=== PATIENT | male | born 1980 | race Two or more races ===

== ENCOUNTER 2023-06-23 16:44 | Inpatient (IN) | payer MEDICAID, OTHER ==
[~2023-06-23] VITALS: Ht 160 cm; Wt 66.2 kg
[2023-06-23] MEDS ORDERED: hydrALAZINE HCL 20 MG/ML VL IV ONE (17:45)
[2023-06-23 17:50] LABS: Basophils # (auto) 0.1 10 ^3/uL (0-0.2); Basophils % (auto) 1.2 % (0.0-2.0); Eosinophils # (auto) 0.3 10 ^3/uL (0-0.8); Eosinophils % (auto) 3.7 % (0.0-7.0); Hematocrit 46.6 % (41.0-53.0); Hemoglobin 15.7 g/dL (13.5-17.5); Lymphocytes # (auto) 2.1 10 ^3/uL (0.4-5.4); Lymphocytes % (auto) 22.3 % (10.0-50.0); Mean Corpuscular Hemoglobin 29.3 pg (28.0-32.0); Mean Corpuscular Hgb Conc. 33.7 g/dL (32.0-36.0); Mean Corpuscular Volume 86.7 fL (80.0-100.0); Monocytes # (auto) 0.6 10 ^3/uL (0-1.3); Monocytes % (auto) 6.9 % (0.0-12.0); Neutrophils # (auto) 6.1 10 ^3/uL (1.6-8.6); Neutrophils % (auto) 65.9 % (37.0-80.0); Nucleated Red Blood Cells % 0.2 %; Red Blood Cells 5.38 10^6/uL (4.5-5.90); Red Cell Distribution Width 13.4 % (11.8-14.3); White Blood Cell 9.2 10^3/uL (4.4-10.8)
[2023-06-23 18:03] LABS: Alanine Aminotransferase 88 U/L (7-40); Albumin 4.6 g/dL (3.2-4.8); Alkaline Phosphatase 117 U/L (46-116); Anion Gap 7 (5-15); Aspartate Aminotransferase 41 U/L (13-40); BUN/Creatinine Ratio 18.8 (10.0-20.0); Blood Urea Nitrogen 21 mg/dL (9-23); Calcium 9.5 mg/dL (8.7-10.4); Carbon Dioxide 27 mmol/L (20-30); Chloride 105 mmol/L (98-107); Glucose 161 mg/dL (74-106); Lipase 39 U/L (12-53); Potassium 3.8 mmol/L (3.5-5.1); Sodium 139 mmol/L (136-145)
[2023-06-23 18:04] LABS: Bilirubin, Total 1.7 mg/dL (0.2-1.0); Total Protein 6.9 g/dL (5.7-8.2)
[2023-06-23] MEDS ORDERED: KETOROLAC TROMETH 60MG/2ML VIAL IM ONE (20:15)
[2023-06-23 20:25] LABS: Urine Bacteria FEW /hpf (None Seen); Urine Blood Negative /uL (Negative); Urine Clarity Clear (Clear); Urine Color Colorless (Yellow); Urine Protein, UAD 2+ (Negative); Urine Specific Gravity 1.014 (1.001-1.035); Urine Urobilinogen Normal (Negative); Urine WBC <1 /hpf (0 - 3); Urine pH 7.5 (5.0-8.0)
[2023-06-23] MEDS ORDERED: ONDANSETRON HCL 4 MG/2 ML VIAL IV ONE (21:15)
[2023-06-23] MEDS ORDERED: cloNIDine HCL 0.1 MG TAB PO ONE (21:45)
[2023-06-24 00:03] VITALS: PULSE 79; RESP 18; O2SAT 90
[2023-06-24] MEDS ORDERED: DOCUSATE SOD 100 MG CAP PO PRN (01:00)
[2023-06-24] MEDS ORDERED: TEMAZEPAM 15 MG CAP PO PRN (01:00)
[2023-06-24] MEDS ORDERED: NITROGLYCERIN 0.4 MG SL TAB SL PRN (01:00)
[2023-06-24] MEDS ORDERED: IBUPROFEN 600 MG TAB PO PRN (01:00)
[2023-06-24] MEDS ORDERED: HYDROcodone-ACET 5/325MG TAB PO PRN (01:00)
[2023-06-24] MEDS ORDERED: ONDANSETRON HCL 4 MG/2 ML VIAL IV PRN (01:00)
[2023-06-24] MEDS ORDERED: MORPHINE SULFATE INJ 2 MG/ml SYRG IV PRN ×2 (01:00)
[2023-06-24 03:29] LABS: Basophils # (auto) 0.1 10 ^3/uL (0-0.2); Basophils % (auto) 0.6 % (0.0-2.0); Eosinophils # (auto) 0.1 10 ^3/uL (0-0.8); Eosinophils % (auto) 0.5 % (0.0-7.0); Hematocrit 45.8 % (41.0-53.0); Hemoglobin 15.6 g/dL (13.5-17.5); Lymphocytes # (auto) 1.3 10 ^3/uL (0.4-5.4); Mean Corpuscular Hemoglobin 29.4 pg (28.0-32.0); Mean Corpuscular Volume 86.5 fL (80.0-100.0); Monocytes # (auto) 0.6 10 ^3/uL (0-1.3); Monocytes % (auto) 5.6 % (0.0-12.0); Neutrophils # (auto) 8.6 10 ^3/uL (1.6-8.6); Neutrophils % (auto) 81.3 % (37.0-80.0); Nucleated Red Blood Cells % 0.1 %; Red Cell Distribution Width 13.9 % (11.8-14.3); White Blood Cell 10.6 10^3/uL (4.4-10.8)
[2023-06-24 03:53] LABS: Alanine Aminotransferase 78 U/L (7-40); Albumin 4.5 g/dL (3.2-4.8); Alkaline Phosphatase 108 U/L (46-116); Anion Gap 10 (5-15); Aspartate Aminotransferase 28 U/L (13-40); BUN/Creatinine Ratio 12.5 (10.0-20.0); Bilirubin, Total 1.9 mg/dL (0.2-1.0); Blood Urea Nitrogen 18 mg/dL (9-23); Calcium 9.2 mg/dL (8.7-10.4); Carbon Dioxide 24 mmol/L (20-30); Chloride 103 mmol/L (98-107); Glucose 205 mg/dL (74-106); Potassium 3.4 mmol/L (3.5-5.1); Sodium 137 mmol/L (136-145); Total Protein 7.2 g/dL (5.7-8.2)
[2023-06-24 08:53] VITALS: PULSE 82; RESP 14; O2SAT 95
[2023-06-24] MEDS: amLODIPine BESYLATE 5 MG TAB PO SCH (10:11)
[2023-06-24] MEDS ORDERED: LISINOPRIL 10 MG TAB PO ONE (11:00)
[2023-06-24] MEDS ORDERED: POTASSIUM CHL 20 Meq TABLET PO ONE (11:00)
[2023-06-24] MEDS ORDERED: DEXTROSE (50%) 50ML SYRG IV PRN (11:00)
[2023-06-24] MEDS: ACCU-CHEK COMFORT CURVE STRIP VI SCH ×3 (11:39→21:54)
[2023-06-24] MEDS: InsuLIN REG 1unit/0.01ml Soln (100units/ml) SC SCH ×3 (11:42→21:53)
[2023-06-24 12:42] LABS: Magnesium 1.8 mg/dL (1.6-2.6)
[2023-06-24 16:09] VITALS: BP 151/97; PULSE 82; RESP 18; TEMP 97.8; O2SAT 97
[2023-06-24 17:07] VITALS: BP 134/97; PULSE 77
[2023-06-24 20:00] VITALS: BP 142/92; PULSE 80; PULSE 92; RESP 18; TEMP 98.3; O2SAT 96
[2023-06-24] MEDS: ATORVASTATIN 20 MG TAB PO SCH (21:49)
[2023-06-24 22:00] VITALS: BP 142/92; PULSE 80; RESP 18; TEMP 98.3; O2SAT 96
[2023-06-25] VITALS (8 sets, daily range): BP systolic 145–164; BP diastolic 89–113; PULSE 72–87; RESP 18; TEMP 97.8–98.7; O2SAT 95–97
[2023-06-25 05:46] LABS: Basophils # (auto) 0.1 10 ^3/uL (0-0.2); Basophils % (auto) 0.7 % (0.0-2.0); Eosinophils # (auto) 0.3 10 ^3/uL (0-0.8); Eosinophils % (auto) 3.8 % (0.0-7.0); Hematocrit 45.5 % (41.0-53.0); Hemoglobin 15.4 g/dL (13.5-17.5); Lymphocytes # (auto) 2.5 10 ^3/uL (0.4-5.4); Lymphocytes % (auto) 29.2 % (10.0-50.0); Mean Corpuscular Hemoglobin 29.7 pg (28.0-32.0); Mean Corpuscular Hgb Conc. 33.9 g/dL (32.0-36.0); Mean Corpuscular Volume 87.5 fL (80.0-100.0); Monocytes # (auto) 0.7 10 ^3/uL (0-1.3); Monocytes % (auto) 8.1 % (0.0-12.0); Neutrophils % (auto) 58.2 % (37.0-80.0); Nucleated Red Blood Cells % 0.1 %; Red Cell Distribution Width 13.5 % (11.8-14.3); White Blood Cell 8.7 10^3/uL (4.4-10.8)
[2023-06-25] MEDS: ACCU-CHEK COMFORT CURVE STRIP VI SCH ×4 (06:00→22:10)
[2023-06-25 06:04] LABS: Alanine Aminotransferase 84 U/L (7-40); Albumin 4.4 g/dL (3.2-4.8); Alkaline Phosphatase 103 U/L (46-116); Anion Gap 7 (5-15); Aspartate Aminotransferase 36 U/L (13-40); BUN/Creatinine Ratio 17.6 (10.0-20.0); Blood Urea Nitrogen 25 mg/dL (9-23); Calcium 9.4 mg/dL (8.7-10.4); Carbon Dioxide 28 mmol/L (20-30); Chloride 105 mmol/L (98-107); Glucose 127 mg/dL (74-106); Potassium 3.8 mmol/L (3.5-5.1); Sodium 140 mmol/L (136-145)
[2023-06-25 06:05] LABS: Bilirubin, Total 1.5 mg/dL (0.2-1.0); Total Protein 6.8 g/dL (5.7-8.2)
[2023-06-25] MEDS: InsuLIN REG 1unit/0.01ml Soln (100units/ml) SC SCH ×4 (06:27→22:10)
[2023-06-25] MEDS: amLODIPine BESYLATE 5 MG TAB PO SCH (08:17)
[2023-06-25] MEDS: LISINOPRIL 10 MG TAB PO SCH (08:18)
[2023-06-25] MEDS ORDERED: LISINOPRIL 10 MG TAB PO SCH (10:00)
[2023-06-25] MEDS: hydrALAZINE HCL 20 MG/ML VL IV PRN ×2 (17:47→22:03)
[2023-06-25] MEDS: ATORVASTATIN 20 MG TAB PO SCH (22:02)
[2023-06-26 05:00] VITALS: BP 150/101; PULSE 85; RESP 18; TEMP 98.7; O2SAT 95
[2023-06-26 05:40] LABS: Alanine Aminotransferase 84 U/L (7-40); Albumin 4.5 g/dL (3.2-4.8); Alkaline Phosphatase 107 U/L (46-116); Anion Gap 9 (5-15); Aspartate Aminotransferase 33 U/L (13-40); Bilirubin, Total 1.9 mg/dL (0.2-1.0); Blood Urea Nitrogen 15 mg/dL (9-23); Calcium 9.4 mg/dL (8.7-10.4); Carbon Dioxide 25 mmol/L (20-30); Chloride 105 mmol/L (98-107); Glucose 126 mg/dL (74-106); Sodium 139 mmol/L (136-145)
[2023-06-26] MEDS: hydrALAZINE HCL 20 MG/ML VL IV PRN (06:47)
[2023-06-26] MEDS: ACCU-CHEK COMFORT CURVE STRIP VI SCH ×2 (06:54→11:18)
[2023-06-26] MEDS: InsuLIN REG 1unit/0.01ml Soln (100units/ml) SC SCH ×2 (06:54→11:27)
[2023-06-26 08:00] VITALS: PULSE 71; PULSE 82; RESP 22; O2SAT 94
[2023-06-26 08:20] VITALS: BP 148/95; PULSE 79; RESP 21; TEMP 97.8; O2SAT 95
[2023-06-26] MEDS: LISINOPRIL 10 MG TAB PO SCH (09:44)
[2023-06-26] MEDS: amLODIPine BESYLATE 5 MG TAB PO SCH (09:44)
[2023-06-26 12:15] VITALS: BP 152/100; PULSE 92; RESP 21; TEMP 98.3; O2SAT 97
[2023-06-26] MEDS ORDERED: LISI20TA56 PO (13:05)
[2023-06-26] MEDS ORDERED: AMLO1TAB23 PO (13:05)
[2023-06-26] MEDS ORDERED: ATO40T PO (13:05)
[2023-06-26] MEDS ORDERED: METF-372 PO (13:05)
[2023-06-26 13:42] VITALS: BP 152/100; PULSE 92; RESP 21; TEMP 98.3; O2SAT 97
== END 2023-06-26 15:45 | disposition home or self-care (01) | DRG 199 ==
LOC: ER 16:44 → TELE 06-24 00:54 → TELE-WESTW 06-24 15:51
PROVIDERS: ADMIT Nurse Practitioner Family; ATTEND Family Medicine
DX: I16.1 Hypertensive emergency (principal); N17.9 Acute kidney failure, unspecified; E87.6 Hypokalemia; E66.01 Morbid (severe) obesity due to excess calories; E11.65 Type 2 diabetes mellitus with hyperglycemia; E78.00 Pure hypercholesterolemia, unspecified; R74.8 Abnormal levels of other serum enzymes; R79.89 Other specified abnormal findings of blood chemistry; E78.2 Mixed hyperlipidemia; Z91.148 Patient's other noncompliance with medication regimen for other reason; Z68.25 Body mass index [BMI] 25.0-25.9, adult
CPT/HCPCS: 36415; 71045; 80053; 80061; 81001; 82962; 83036; 83690; 83735; 83880; 84443; 84484; 85025; 93005; 93306; 96372; 96374; 96375; G0378; J1815; J1885; J2405